=== PATIENT | male | born 1940 | race Caucasian/White ===

== ENCOUNTER 2017-07-31 10:00 | Inpatient (IN) | payer OTHER ==
[~2017-07-31] VITALS: Ht 180.3 cm; Wt 72.6 kg
[~2017-07-31 10:00] MED LIST: LIPITOR20 MG; LOTREL 10-20 M1 EACH
[2017-08-11] MEDS ORDERED: INTESTINEX680 M1 PO (13:16)
[2017-08-11] MEDS ORDERED: AMLODIPINE BESYL5 MG PO (13:16)
== END 2017-08-11 13:48 | disposition home or self-care (01) | DRG 418 ==
LOC: EDSTATUS 10:00 → ADM 10:00 → SURH 08-04 07:00 → O/R 08-04 07:08 → SURH 08-04 10:00 → MEDI 08-04 13:20 → SURH 08-04 13:20
PROVIDERS: Surgery
PROC: BF13YZZ Fluoroscopy of Gallbladder and Bile Ducts using Other Contrast (ICD-10-PCS; 2017-08-04)
PROC: 0FT44ZZ Resection of Gallbladder, Percutaneous Endoscopic Approach (ICD-10-PCS; principal; 2017-08-04 07:00)
PROC: 3E0F7GC Introduction of Other Therapeutic Substance into Respiratory Tract, Via Natural or Artificial Opening (ICD-10-PCS; 2017-08-05)
PROC: 4A033R1 Measurement of Arterial Saturation, Peripheral, Percutaneous Approach (ICD-10-PCS; 2017-08-05)
PROC: 4A12X4Z Monitoring of Cardiac Electrical Activity, External Approach (ICD-10-PCS; 2017-08-05)
PROC: B246ZZZ Ultrasonography of Right and Left Heart (ICD-10-PCS; 2017-08-06)
DX: K80.10 Calculus of gallbladder with chronic cholecystitis without obstruction (principal); J95.89 Other postprocedural complications and disorders of respiratory system, not elsewhere classified; J98.11 Atelectasis; N17.8 Other acute kidney failure; I10 Essential (primary) hypertension; E78.4 Other hyperlipidemia; R09.02 Hypoxemia; N99.0 Postprocedural (acute) (chronic) kidney failure; S30.821A Blister (nonthermal) of abdominal wall, initial encounter; Z78.1 Physical restraint status

== ENCOUNTER 2022-12-24 20:12 | Emergency (ER) | payer OTHER ==
[~2022-12-24] VITALS: Ht 180.3 cm; Wt 81.6 kg
[~2022-12-24 20:12] MED LIST changes: +AMLODIPINE BESYL5 MG PO; +INTESTINEX680 M1 PO
== END 2022-12-25 03:16 | disposition home or self-care (01) ==
LOC: ER 20:12
PROVIDERS: Emergency Medicine
DX: I95.9 Hypotension, unspecified (principal); R55 Syncope and collapse